=== PATIENT | female | born 1955 | race Hispanic/Latino ===

== ENCOUNTER 2019-06-16 19:48 | Emergency (ER) | payer MEDICARE ==
[~2019-06-16] VITALS: Ht 154.9 cm; Wt 90.7 kg
--- OUTSIDE RECORDS SUMMARY | 2019-06-16 19:52 | XMS REPORT ---
Author Author [facility] Address Unknown Phone Unavailable Care Team Providers Care Collarette Separator Name Role Phone Unavailable Unavailable Payers Payer Name Policy Type Policy Number Effective Date Expiration Date Problems This patient has no known problems. Allergies, Adverse Reactions, Alerts This patient has no known allergies or adverse reactions. Medications This patient has no known medications.
[2019-06-16 20:38] LABS: STREPTOCOCCUS GRP A ANTIGEN NEGATIVE (NEGATIVE)
[2019-06-16 20:45] LABS: INFLUENZAE A&B ANTIGEN (RAPID) NEGATIVE (NEGATIVE)
--- NOTE | 2019-06-16 22:56 | Diagnostic Imaging Report ---
EXAM: CT Chest WITHOUT contrast INDICATION: Short of breath COMPARISON: None TECHNIQUE: Chest was scanned utilizing a multidetector helical scanner from the lung apex through the level of the adrenal glands without administration of IV contrast. Absence of intravenous contrast decreases sensitivity for detection of lymphadenopathy and vascular pathology. Coronal and sagittal reformations were obtained. Routine protocol was performed. IV CONTRAST: None COMPLICATIONS: None RADIATION DOSE: Total DLP: 518 mGy*cm Estimated effective dose: (DLP x 0.014 x size factor) mSv CTDIvol has been reviewed. It is below the limits set by the Radiation Protocol Committee (RPC). Dose modulation, iterative reconstruction, and/or weight based adjustment of the mA/kV was utilized to reduce the radiation dose to as low as reasonably achievable. FINDINGS: LINES/ TUBES: None. LUNGS AND AIRWAYS: The lungs are unremarkable. Airways are normal. PLEURA: The pleural spaces are clear. HEART AND MEDIASTINUM: The thyroid gland is normal. No mediastinal, hilar or axillary lymphadenopathy. The heart is normal in size. There is no pericardial effusion. Calcifications of the aorta and major branches including the coronary arteries. UPPER ABDOMEN: Unremarkable. BONES: Degenerative changes in the spine. SOFT TISSUES: Unremarkable. IMPRESSION: Triple vessel coronary artery calcific atherosclerosis. Signed by: Geovanny Jennings DO on 06/16/2019 10:53 PM
[2019-06-16] MEDS ORDERED: ALBUTEROL SULF 0.083% NEB SOLN 3 ML NEB NEB STA (23:01)
[2019-06-16] MEDS ORDERED: METHYLPREDNISOLONE SOD SUCC 125 MG/2ML VIAL ONE (23:08)
[2019-06-16] MEDS ORDERED: IPRATROPIUM BROMIDE 0.02% 2.5 ML NEB NEB ONE (23:15)
[2019-06-16] MEDS ORDERED: METHYLPREDNISOLONE SOD SUCC 125 MG/2ML VIAL IM ONE (23:15)
--- NOTE | 2019-06-16 23:28 | NUR ---
Rt administered breathing treatment.
[2019-06-16 23:32] VITALS: BP 153/96
== END 2019-06-16 23:54 | disposition home or self-care (01) ==
LOC: ER 19:48
DX: J45.31 Mild persistent asthma with (acute) exacerbation (principal); I10 Essential (primary) hypertension; Z82.49 Family history of ischemic heart disease and other diseases of the circulatory system
CPT/HCPCS: 71250; 83518; 87070; 87400; 94640; 99284; J2930

== ENCOUNTER 2019-06-27 14:56 | Emergency (ER) | payer MEDICARE ==
[~2019-06-27] VITALS: Ht 154.9 cm; Wt 90.7 kg
[2019-06-27] MEDS ORDERED: ASPIRIN 81 MG CHEW TAB PO ONE (15:15)
[2019-06-27] MEDS ORDERED: ALBUTEROL SULF 0.083% NEB SOLN 3 ML NEB NEB STA (15:15)
[2019-06-27] MEDS ORDERED: ALBUTEROL SULFATE HFA 8GM INHALATION AEROSOL INH PRN (15:15)
[2019-06-27] MEDS ORDERED: IPRATROPIUM BROMIDE 0.02% 2.5 ML NEB NEB STA (15:15)
[2019-06-27 15:39] LABS: BASOPHILS # (AUTO) 0.1 (0.0-0.1); BASOPHILS % 0.4 % (0.0-1.0); EOSINOPHILS # (AUTO) 0.3 (0.0-0.4); EOSINOPHILS % 2.3 % (0.0-6.0); HEMATOCRIT 47.5 % (34.2-44.1); HEMOGLOBIN 15.9 g/dL (12.0-16.0); LYMPHOCYTES # (AUTO) 3.5 (1.0-3.2); MEAN CORPUSCULAR HEMOGLOBIN 32.6 pg (28-32); MEAN CORPUSCULAR HGB CONC 33.5 g/dL (31-35); MEAN CORPUSCULAR VOLUME 97.3 fL (81-99); MONOCYTES # (AUTO) 0.7 (0.2-0.8); MONOCYTES % 5.8 % (4.4-11.3); NEUTROPHILS % 60.6 % (38.7-80.0); PLATELET COUNT 233 x10e3/uL (140-360); RED BLOOD COUNT 4.88 x10e6/uL (3.6-5.1); RED CELL DISTRIBUTION WIDTH 12.5 % (11.7-14.4)
[2019-06-27] MEDS ORDERED: IPRATROPIUM/ALBUTEROL SULFATE 4 GM INH INH PRN (15:45)
[2019-06-27 15:58] LABS: ALANINE AMINOTRANSFERASE 40 IU/L (0-55); ALBUMIN 3.8 g/dL (3.5-5.0); ALBUMIN/GLOBULIN RATIO 1.3 (0.8-2.0); ALKALINE PHOSPHATASE 94 IU/L (40-150); BLOOD UREA NITROGEN 13 mg/dL (7-26); BUN/CREATININE RATIO 13 (6-25); CALCIUM 9.3 mg/dL (8.4-10.2); CARBON DIOXIDE 32 mmol/L (22-29); CHLORIDE 98 mmol/L (98-107); CREATINE KINASE 34 IU/L (29-168); CREATININE, SERUM 0.97 mg/dL (0.57-1.11); EST GLOMERULAR FILTRATION RATE 58 ML/MIN (60-); GLUCOSE 94 mg/dL (74-118); SODIUM 142 mmol/L (136-145)
[2019-06-27 16:05] LABS: STREPTOCOCCUS GRP A ANTIGEN NEGATIVE (NEGATIVE)
[2019-06-27 16:28] LABS: INFLUENZAE A&B ANTIGEN (RAPID) NEGATIVE (NEGATIVE)
--- NOTE | 2019-06-27 16:46 | Diagnostic Imaging Report ---
EXAMINATION: CHEST SINGLE (PORTABLE) INDICATION: Fever, cough, shortness of breath, chest pain COMPARISON: None FINDINGS: LINES/TUBES:None LUNGS:The lungs are well-inflated. No focal consolidation or pulmonary edema. PLEURA:No pleural effusion or pneumothorax. MEDIASTINUM:The cardiomediastinal silhouette appears normal in size and shape. Atherosclerotic calcifications of the thoracic aorta. BONES/SOFT TISSUES:No acute osseous injury. ABDOMEN:No free air under the diaphragm. IMPRESSION: No focal pneumonia or pulmonary edema. Signed by: Aparna De La Torre MD on 06/27/2019 4:42 PM
[2019-06-27] MEDS ORDERED: SODIUM CHLORIDE 0.9% 1000ML 1,000 ML IV STA (17:12)
--- NOTE | 2019-06-27 18:45 | Diagnostic Imaging Report ---
EXAM: CT Chest WITH contrast 06/27/2019 5:01 PM INDICATION: ^pe protocol ^[id number] ^1800 COMPARISON: Chest radiograph 06/27/[address] chest 06/16/2019 TECHNIQUE: Spiral CT images of the chest were performed from the lung apices through the level of the adrenal glands after the IV contrast administration. Thin section reconstructions were obtained with special concentration on the pulmonary arteries. IV CONTRAST: 100 mL of Isovue-370 ORAL CONTRAST: None COMPLICATIONS: None RADIATION DOSE: Total DLP: 494 mGy*cm Estimated effective dose: (DLP x 0.015 x size factor) mSv CTDIvol has been reviewed. It is below the limits set by the Radiation Protocol Committee (RPC). FINDINGS: LINES/ TUBES: None. PULMONARY ARTERIES: No filling defects are identified in the main, right or left pulmonary arteries to their segmental and subsegmental levels, to suggest pulmonary embolism. The main pulmonary artery is normal in size. LUNGS AND AIRWAYS: The lungs are clear. Specifically, no alveolar groundglass opacities or consolidations. Moderate bilateral central peribronchial wall thickening without bronchiectasis. The airways are patent. PLEURA: The pleural spaces are clear. HEART AND MEDIASTINUM: The thyroid gland is normal. No mediastinal, hilar or axillary lymphadenopathy. The heart is normal in size. There is no pericardial effusion. Mild coronary artery calcifications. The thoracic aorta is unremarkable. UPPER ABDOMEN: Unremarkable. BONES: The visualized bony thorax is within normal limits. SOFT TISSUES: Unremarkable. IMPRESSION: No pulmonary embolism. Moderate bilateral peribronchial wall thickening suggestive of acute bronchitis, which can be viral. Otherwise, no lung parenchymal groundglass opacities or consolidations. Signed by: Dr. Starla Good M.D. on 06/27/2019 6:42 PM
[2019-06-27] MEDS ORDERED: IPRATROPIUM BROMIDE INHALER 12.9 GM INH INH SCH (19:00)
[2019-06-27] MEDS ORDERED: IPRATROPIUM/ALBUTEROL SULFATE 4 GM INH INH SCH (19:00)
[2019-06-27] MEDS ORDERED: ALBUTEROL SULF 0.083% NEB SOLN 3 ML NEB ONE (19:29)
[2019-06-27] MEDS ORDERED: IPRATROPIUM BROMIDE 0.02% 2.5 ML NEB ONE (19:30)
[2019-06-27 19:35] VITALS: BP 131/90
[2019-06-27] MEDS ORDERED: IOPAMIDOL 370 MG/ML 200 ML INFUS..BTL INJ ONE (19:40)
[2019-06-27] MEDS ORDERED: SODIUM CHLORIDE 0.9% 50ML 50 ML ONE (19:40)
== END 2019-06-27 20:02 | disposition home or self-care (01) ==
LOC: ER 14:56
DX: R06.00 Dyspnea, unspecified (principal); R05 Cough; R07.89 Other chest pain; J20.9 Acute bronchitis, unspecified; I10 Essential (primary) hypertension; M79.7 Fibromyalgia
CPT/HCPCS: 36415; 71045; 71260; 80053; 82550; 82553; 83518; 83880; 84484; 85025; 85379; 87070; 87400; 93005; 94640; 99284; J7030; Q9967